=== PATIENT | female | born 1965 | race African-American/Black ===

== ENCOUNTER 2020-07-02 11:27 | Outpatient (CLI) | payer OTHER ==
[2020-07-02] MEDS ORDERED: ASA81 MG PO (13:57)
[2020-07-02] MEDS ORDERED: SYNTHROID100 MCG PO (13:57)
[2020-07-02] MEDS ORDERED: BUPROPION HCL200 M1 PO (13:57)
[2020-07-02] MEDS ORDERED: TOPROL XL50 M1 PO (13:57)
[2020-07-02] MEDS ORDERED: HYDROXYCHLOROQ200 MG PO (13:58)
[2020-07-02] MEDS ORDERED: PROTONIX40 MG PO (13:58)
[2020-07-02] MEDS ORDERED: BONIVA150 MG PO (13:59)
[2020-07-02] MEDS ORDERED: VENLAFAXINE HCL75 M2 (13:59)
[2020-07-02] MEDS ORDERED: LYRICA100 MG PO (13:59)
[2020-07-02] MEDS ORDERED: PROVENTIL HFA6.7 GM IH (14:02)
== END 2020-07-02 13:54 | disposition home or self-care (01) ==
LOC: EKG 11:27
PROVIDERS: ATTEND Urology
DX: I10 Essential (primary) hypertension (principal)

== ENCOUNTER 2020-07-23 13:05 | Outpatient (CLI) | payer OTHER ==
[~2020-07-23 13:05] MED LIST: ASA81 MG PO; BONIVA150 MG PO; BUPROPION HCL200 M1 PO; HYDROXYCHLOROQ200 MG PO; LYRICA100 MG PO; PROTONIX40 MG PO; PROVENTIL HFA6.7 GM IH; SYNTHROID100 MCG PO; TOPROL XL50 M1 PO; VENLAFAXINE HCL75 M2
== END 2020-07-23 13:18 | disposition home or self-care (01) ==
LOC: RAD 13:05
PROVIDERS: ATTEND Urology
DX: N20.1 Calculus of ureter (principal)

== ENCOUNTER 2020-07-25 11:51 | Day surgery (SDC) | payer OTHER | END 2020-07-25 22:00 | disposition home or self-care (01) | LOC: CIR.AMB 11:51 | PROVIDERS: ATTEND Urology | DX: N20.0 Calculus of kidney (principal); N20.1 Calculus of ureter; Z20.828 Contact with and (suspected) exposure to other viral communicable diseases ==

== ENCOUNTER 2020-08-08 16:18 | Outpatient (CLI) | payer OTHER | END 2020-08-08 16:51 | disposition home or self-care (01) | LOC: RAD 16:18 | PROVIDERS: ATTEND Urology | DX: N20.1 Calculus of ureter (principal) ==

== ENCOUNTER 2020-09-03 07:10 | Outpatient (CLI) | payer OTHER | END 2020-09-03 07:14 | disposition home or self-care (01) | LOC: RAD 07:10 | PROVIDERS: ATTEND Orthopaedic Surgery | DX: M25.561 Pain in right knee (principal); M25.562 Pain in left knee ==

== ENCOUNTER 2020-09-04 13:59 | Outpatient (CLI) | payer OTHER | END 2020-09-04 14:17 | disposition home or self-care (01) | LOC: MRI 13:59 | PROVIDERS: ATTEND Orthopaedic Surgery | DX: M17.12 Unilateral primary osteoarthritis, left knee (principal); S83.242A Other tear of medial meniscus, current injury, left knee, initial encounter; M25.562 Pain in left knee | CPT/HCPCS: 73721 ==

== ENCOUNTER 2020-09-10 13:57 | Emergency (ER) | payer OTHER ==
[~2020-09-10] VITALS: Ht 160 cm; Wt 127.0 kg
[2020-09-10] MEDS ORDERED: SEROQUEL50 MG PO (14:30)
[2020-09-10] MEDS ORDERED: ALBUTEROL1.25 MG/3 IH (18:50)
== END 2020-09-10 19:09 | disposition home or self-care (01) ==
LOC: ER 13:57
DX: R06.02 Shortness of breath (principal)

== ENCOUNTER 2020-09-25 08:33 | Outpatient (CLI) | payer OTHER ==
[~2020-09-25 08:33] MED LIST changes: +ALBUTEROL1.25 MG/3 IH; +SEROQUEL50 MG PO
== END 2020-09-25 08:40 | disposition home or self-care (01) ==
LOC: RAD 08:33
PROVIDERS: ATTEND Urology
DX: N20.0 Calculus of kidney (principal)

== ENCOUNTER 2020-11-09 08:05 | Outpatient (CLI) | payer OTHER | END 2020-11-09 08:16 | disposition home or self-care (01) | LOC: MAMO-SONO 08:05 | PROVIDERS: ATTEND Internal Medicine Cardiovascular Disease | DX: Z12.31 Encounter for screening mammogram for malignant neoplasm of breast (principal); Z87.898 Personal history of other specified conditions; N63.11 Unspecified lump in the right breast, upper outer quadrant; N20.0 Calculus of kidney; N20.1 Calculus of ureter ==

== ENCOUNTER 2020-11-17 23:57 | Emergency (ER) | payer OTHER ==
[~2020-11-17] VITALS: Ht 160 cm; Wt 127.0 kg
[2020-11-18] MEDS ORDERED: FOSAMAX PLUS D1 EAC1 (00:27)
[2020-11-18] MEDS ORDERED: PEPCID AC20 MG PO (04:15)
[2020-11-18] MEDS ORDERED: CARAFATE1 GM PO (04:15)
== END 2020-11-18 04:48 | disposition home or self-care (01) ==
LOC: ER 23:57
DX: K29.60 Other gastritis without bleeding (principal); R06.02 Shortness of breath; R07.89 Other chest pain

== ENCOUNTER 2021-04-05 18:21 | Emergency (ER) | payer OTHER ==
[~2021-04-05] VITALS: Ht 160 cm; Wt 127.0 kg
[~2021-04-05 18:21] MED LIST changes: +CARAFATE1 GM PO; +FOSAMAX PLUS D1 EAC1; +PEPCID AC20 MG PO
[2021-04-06] MEDS ORDERED: CELEBREX200MG PO (00:26)
[2021-04-06] MEDS ORDERED: PERCOCET 5-3251 EACH PO (00:26)
== END 2021-04-06 02:59 | disposition home or self-care (01) ==
LOC: ER 18:21
DX: G89.18 Other acute postprocedural pain (principal); M25.561 Pain in right knee; M79.604 Pain in right leg; Z96.651 Presence of right artificial knee joint

== ENCOUNTER 2021-04-15 22:29 | Emergency (ER) | payer OTHER ==
[~2021-04-15] VITALS: Ht 172.7 cm; Wt 99.8 kg
[~2021-04-15 22:29] MED LIST changes: +CELEBREX200MG PO; +PERCOCET 5-3251 EACH PO
[2021-04-16] MEDS ORDERED: MEDROLPACK PO (05:27)
[2021-04-16] MEDS ORDERED: CARAFATE1 GM PO (05:27)
[2021-04-16] MEDS ORDERED: PEPCID AC20 MG PO (05:27)
[2021-04-16] MEDS ORDERED: NORFLEX100MG PO (05:27)
== END 2021-04-16 05:40 | disposition home or self-care (01) ==
LOC: ER 22:29
DX: K29.70 Gastritis, unspecified, without bleeding (principal); R07.89 Other chest pain

== ENCOUNTER → 2021-10-02 | Emergency (ER) | payer OTHER ==
[~2021-10-02] VITALS: Ht 160 cm; Wt 81.6 kg
[~2021-10-02] MED LIST changes: +CLONAZEPAM1 MG; +EFFEXOR XR150 MG; +LYRICA150 MG; +MEDROLPACK PO; +NEURONTIN300 MG; +NORFLEX100MG PO; +WELLBUTRIN SR100 MG; +ZITHROMAX500 MG PO; +ZYNCOF 20-400120 ML PO
== END | disposition home or self-care (01) ==
LOC: ER 02:49
DX: U07.1 COVID-19 (principal); J45.998 Other asthma

== ENCOUNTER 2021-10-14 10:18 | Outpatient (CLI) | payer OTHER | END 2021-10-14 10:20 | disposition home or self-care (01) | LOC: RAD 10:18 | PROVIDERS: ATTEND Physical Medicine & Rehabilitation | DX: M79.7 Fibromyalgia (principal); M17.12 Unilateral primary osteoarthritis, left knee; M54.50 Low back pain, unspecified; M47.816 Spondylosis without myelopathy or radiculopathy, lumbar region; M25.462 Effusion, left knee; M25.562 Pain in left knee; M25.561 Pain in right knee; M17.11 Unilateral primary osteoarthritis, right knee; M25.551 Pain in right hip; M70.61 Trochanteric bursitis, right hip; I10 Essential (primary) hypertension; E03.9 Hypothyroidism, unspecified ==

== ENCOUNTER 2021-11-05 07:17 | Outpatient (CLI) | payer OTHER | END 2021-11-05 07:18 | disposition home or self-care (01) | LOC: NUCLEAR 07:17 | PROVIDERS: ATTEND Orthopaedic Surgery | DX: T84.63XA Infection and inflammatory reaction due to internal fixation device of spine, initial encounter (principal) | CPT/HCPCS: 78315; A9503 ==

== ENCOUNTER → 2021-11-12 12:56 | Outpatient (CLI) | payer OTHER ==
[~2021-11-12 12:56] MED LIST changes: +ALENDRONATE SOD70 MG; +BUTALB-ACETAMI1 EAC2; +CIPRO500 MG PO; +ELIQUIS2.5 MG PO; +FERROUS SULFAT325 MG; +FUROSEMIDE20 MG; +HYDROXYCHLOROQ200 MG; +PENTOXIFYLLINE400 MG; +PEPTO-BISM262 MG/15; +SINGULAIR10 MG PO; +SULINDAC200 MG; +TYLENOL ARTHRI650 MG PO; +VOLTAREN ARTHRI20 GM; +WIXELA 500-501 EACH
== END | disposition home or self-care (01) ==
LOC: NUCLEAR 12:56
PROVIDERS: ATTEND Orthopaedic Surgery
DX: T84.63XA Infection and inflammatory reaction due to internal fixation device of spine, initial encounter (principal)
CPT/HCPCS: 78802; A9556

== ENCOUNTER 2021-11-28 09:30 | Inpatient (IN) | payer OTHER ==
[~2021-11-28] VITALS: Ht 160 cm; Wt 127.0 kg
[~2021-11-28 09:30] MED LIST changes: -ALENDRONATE SOD70 MG; -BUTALB-ACETAMI1 EAC2; -CIPRO500 MG PO; -ELIQUIS2.5 MG PO; -FERROUS SULFAT325 MG; -FUROSEMIDE20 MG; -HYDROXYCHLOROQ200 MG; -PENTOXIFYLLINE400 MG; -PEPTO-BISM262 MG/15; -SINGULAIR10 MG PO; -SULINDAC200 MG; -TYLENOL ARTHRI650 MG PO; -VOLTAREN ARTHRI20 GM; -WIXELA 500-501 EACH
[2021-11-28] MEDS ORDERED: TYLENOL ARTHRI650 MG PO (12:07)
[2021-11-28] MEDS ORDERED: SINGULAIR10 MG PO (12:07)
[2021-12-03] MEDS ORDERED: HYDROXYCHLOROQ200 MG (11:00)
[2021-12-03] MEDS ORDERED: ALENDRONATE SOD70 MG (11:00)
[2021-12-03] MEDS ORDERED: PENTOXIFYLLINE400 MG (11:00)
[2021-12-03] MEDS ORDERED: BUTALB-ACETAMI1 EAC2 (11:01)
[2021-12-03] MEDS ORDERED: SULINDAC200 MG (11:01)
[2021-12-03] MEDS ORDERED: VOLTAREN ARTHRI20 GM (11:01)
[2021-12-03] MEDS ORDERED: FUROSEMIDE20 MG (11:01)
[2021-12-03] MEDS ORDERED: PEPTO-BISM262 MG/15 (11:01)
[2021-12-03] MEDS ORDERED: WIXELA 500-501 EACH (11:01)
[2021-12-03] MEDS ORDERED: FERROUS SULFAT325 MG (11:01)
[2021-12-06] MEDS ORDERED: ELIQUIS2.5 MG PO (07:59)
[2021-12-06] MEDS ORDERED: PERCOCET 5-3251 EACH PO (07:59)
[2021-12-06] MEDS ORDERED: CIPRO500 MG PO (07:59)
== END 2021-12-06 15:35 | disposition home or self-care (01) | DRG 468 ==
LOC: O/R 12-03 06:00 → SURH 12-03 06:00
PROVIDERS: ADMIT Orthopaedic Surgery; ATTEND Orthopaedic Surgery
PROC: 0SRC0J9 Replacement of Right Knee Joint with Synthetic Substitute, Cemented, Open Approach (ICD-10-PCS; 2021-12-03)
PROC: 0SPC0JZ Removal of Synthetic Substitute from Right Knee Joint, Open Approach (ICD-10-PCS; principal; 2021-12-03 13:00)
DX: T84.032A Mechanical loosening of internal right knee prosthetic joint, initial encounter (principal); T84.018A Broken internal joint prosthesis, other site, initial encounter; M17.11 Unilateral primary osteoarthritis, right knee; M85.461 Solitary bone cyst, right tibia and fibula; M25.661 Stiffness of right knee, not elsewhere classified; E66.01 Morbid (severe) obesity due to excess calories; E03.8 Other specified hypothyroidism; I10 Essential (primary) hypertension; Z20.822 Contact with and (suspected) exposure to COVID-19

== ENCOUNTER 2021-12-06 16:25 | Emergency (ER) | payer OTHER ==
[~2021-12-06] VITALS: Ht 160 cm; Wt 127.0 kg
[~2021-12-06 16:25] MED LIST changes: +ALENDRONATE SOD70 MG; +BUTALB-ACETAMI1 EAC2; +CIPRO500 MG PO; +ELIQUIS2.5 MG PO; +FERROUS SULFAT325 MG; +FUROSEMIDE20 MG; +HYDROXYCHLOROQ200 MG; +PENTOXIFYLLINE400 MG; +PEPTO-BISM262 MG/15; +SINGULAIR10 MG PO; +SULINDAC200 MG; +TYLENOL ARTHRI650 MG PO; +VOLTAREN ARTHRI20 GM; +WIXELA 500-501 EACH
== END 2021-12-06 22:18 | disposition home or self-care (01) ==
LOC: ER 16:25
DX: R09.02 Hypoxemia (principal); I10 Essential (primary) hypertension; Z88.8 Allergy status to other drugs, medicaments and biological substances; B96.5 Pseudomonas (aeruginosa) (mallei) (pseudomallei) as the cause of diseases classified elsewhere; Z20.822 Contact with and (suspected) exposure to COVID-19

== ENCOUNTER 2021-12-27 14:10 | Emergency (ER) | payer OTHER ==
[~2021-12-27] VITALS: Ht 160 cm; Wt 127.0 kg
== END 2021-12-27 17:50 | disposition home or self-care (01) ==
LOC: ER 14:10
DX: R10.13 Epigastric pain (principal)

== ENCOUNTER 2022-02-16 02:37 | Emergency (ER) | payer OTHER ==
[~2022-02-16] VITALS: Ht 160 cm; Wt 127.0 kg
[2022-02-16] MEDS ORDERED: CHILDREN'S ASPI81 MG (02:52)
[2022-02-16] MEDS ORDERED: SINGULAIR5 MG PO (02:53)
[2022-02-16] MEDS ORDERED: PROTONIX20 MG (02:53)
[2022-02-16] MEDS ORDERED: LEVOTHYROXINE100 MCG PO (02:53)
[2022-02-16] MEDS ORDERED: NIFEDIPINE20 MG (02:53)
== END 2022-02-16 04:45 | disposition home or self-care (01) ==
LOC: ER 02:37
DX: R07.89 Other chest pain (principal); Z88.8 Allergy status to other drugs, medicaments and biological substances

== ENCOUNTER 2024-06-27 11:58 | Outpatient (CLI) | payer OTHER ==
[~2024-06-27 11:58] MED LIST changes: +CHILDREN'S ASPI81 MG; +LEVOTHYROXINE100 MCG PO; +NIFEDIPINE20 MG; +PROTONIX20 MG; +SINGULAIR5 MG PO
== END 2024-06-27 12:13 | disposition home or self-care (01) ==
LOC: MAMO-SONO 11:58
PROVIDERS: ATTEND Internal Medicine Cardiovascular Disease
DX: J18.9 Pneumonia, unspecified organism (principal); N60.11 Diffuse cystic mastopathy of right breast; N60.12 Diffuse cystic mastopathy of left breast; Z12.31 Encounter for screening mammogram for malignant neoplasm of breast

== ENCOUNTER 2024-12-05 13:55 | Emergency (ER) | payer OTHER ==
[~2024-12-05] VITALS: Ht 152.4 cm; Wt 106.6 kg
[2024-12-05] MEDS ORDERED: KETOROLAC TROMETHAMINE 30 MG VIAL IV ONE (20:00)
[2024-12-05 20:22] LABS: HEMOGLOBIN 11.4 g/dL (12.0-15.00); MEAN CELL VOLUME 85.4 fL (80.00-100.00); MEAN CORPUSCULAR HGB CONC 31.6 g/dl (32.0-36.0); PLATELET COUNT 328 K/uL (150-450); RED BLOOD COUNT 4.22 M/uL (4.00-6.00); RED CELL DISTRIBUTION WIDTH 16.4 % (11.5-14.5)
[2024-12-05 20:37] LABS: PH,URINE 5.5 (5.0-8.0); URINE APPEARANCE Cloudy; URINE BILIRRUBIN Negative (NEGATIVE); URINE BLOOD Moderate; URINE COLOR Yellow; URINE GLUCOSE Negative (NEGATIVE); URINE KETONE Negative (NEGATIVE); URINE LEUKOCYTE Moderate; URINE NITRATE Positive; URINE UROBILINOGEN 0.2 E.U./dl
[2024-12-05 20:42] LABS: URINE RBC 4.7 uL (0.0-20.8); URINE WBC 859.5 uL (0.0-23.2)
[2024-12-05 20:49] LABS: BILIRUBIN TOTAL 0.24 mg/dL (0.3-1.2); CALCIUM 8.7 mg/dL (8.5-10.1); CREATININE SERUM 0.98 mg/dL (0.55-1.02); GFR 58.09; GLOBULINA 4.3 G/DL (2.4-3.5); POTASSIUM 4.09 mEq/L (3.5-5.1); TOTAL PROTEIN 7.3 gm/dL (6.4-8.2)
[2024-12-05 21:09] LABS: URINE BACTERIA > 9821.5 uL (0.0-1933); URINE PROTEIN 100 (NEGATIVE)
[2024-12-05] MEDS ORDERED: BACTRIM DS TAB1 EACH PO (21:36)
[2024-12-05] MEDS ORDERED: TAMS0.4C PO (21:36)
[2024-12-05] MEDS ORDERED: PERCOGESIC EXT1 EACH PO (21:36)
[2024-12-05] MEDS ORDERED: DICLOFENAC SODI50 MG PO (21:36)
[2024-12-05] MEDS ORDERED: TAMSULOSIN HCL 0.4 MG CAP PO ONE (21:45)
[2024-12-05] MEDS ORDERED: MORPHINE SULFATE 4 MG/ML CARTRIDGE IV ONE (22:15)
== END 2024-12-05 22:11 | disposition home or self-care (01) ==
LOC: ER 13:56
PROVIDERS: Preventive Medicine Public Health & General Preventive Medicine
DX: N20.1 Calculus of ureter (principal); N39.0 Urinary tract infection, site not specified; R31.9 Hematuria, unspecified; R30.0 Dysuria; E03.8 Other specified hypothyroidism; Z88.0 Allergy status to penicillin
CPT/HCPCS: 36415; 74176; 96365; 99284; J1885; J2270